=== PATIENT | male | born 1950 | race Hispanic/Latino ===

== ENCOUNTER 2021-11-29 11:15 | Emergency (ER) | payer MEDICARE ==
[~2021-11-29] VITALS: Ht 134.6 cm; Wt 86.2 kg
== END 2021-11-29 12:00 | disposition home or self-care (01) ==
LOC: ER 11:20
DX: M62.830 Muscle spasm of back (principal); M53.82 Other specified dorsopathies, cervical region
CPT/HCPCS: 99282

== ENCOUNTER 2021-12-05 07:32 | Emergency (ER) | payer MEDICARE, OTHER ==
[~2021-12-05] VITALS: Ht 134.6 cm; Wt 86.2 kg
[2021-12-05 09:41] LABS: CLARITY,URINE CLEAR (CLEAR); COLOR,URINE YELLOW (YELLOW); KETONES,URINE TRACE (NEGATIVE); LEUKOCYTE ESTERASE ,URINE NEGATIVE (NEGATIVE); NITRITE,URINE NEGATIVE (NEGATIVE); PROTEIN,URINE DIPSTICK NEGATIVE (NEGATIVE)
[2021-12-05 09:44] LABS: BACTERIA,URINE FEW /HPF; EPITHELIAL CELLS,URINE RARE /LPF; RBC,URINE 0-5 /HPF (0-5); WBC,URINE (MAN) 0-5 /HPF (0-5)
== END 2021-12-05 10:13 | disposition home or self-care (01) ==
LOC: ER 07:40
DX: M62.830 Muscle spasm of back (principal); R10.11 Right upper quadrant pain
CPT/HCPCS: 74176; 81001; 87086; 99283